=== PATIENT | female | born 1985 | race Two or more races ===

== ENCOUNTER 2021-05-23 02:03 | Inpatient (IN) | payer OTHER ==
[~2021-05-23 02:03] MED LIST: Sodium Chloride 0.9% 10 ML Syringe FLUSH PRN
[2021-05-23] MEDS: Lactated Ringers 1,000 ML IV SCH ×2 (06:00→07:34)
[2021-05-23] MEDS ORDERED: Citric Acid/Sodium Citrate Solution 30 ML Cup PO ONE (06:00)
[2021-05-23] MEDS ORDERED: Metoclopramide 10 MG/2 ML SDV IVPUSH ONE (06:00)
[2021-05-23] MEDS ORDERED: ceFAZolin 2 GM in Premix Bag 1 BAG IV ONE (06:00)
[2021-05-23] MEDS ORDERED: Lactated Ringers 1,000 ML ONE (07:05)
[2021-05-23] MEDS ORDERED: Morphine PF 10 MG/10 ML SDV ONE (07:05)
[2021-05-23] MEDS ORDERED: ceFAZolin 1 GM Vial ONE (07:05)
[2021-05-23] MEDS ORDERED: Ondansetron 4 MG/2 ML SDV ONE (07:05)
[2021-05-23] MEDS ORDERED: Oxytocin 10 Units/1 ML SDV ONE ×2 (07:05→08:16)
[2021-05-23] MEDS ORDERED: Ketorolac 30 MG/ML SDV ONE (07:05)
[2021-05-23] MEDS ORDERED: Bupivacaine 0.5% 30 ML SDV ONE (07:15)
--- NOTE | 2021-05-23 07:22 | PCM.PREANE ---
Preanesthetic Assessment - Anesthesia/Transfusion/Family Hx Anesthesia History: Prior Anesthesia Without Reaction Family History of Anesthesia Reaction: No Transfusion History: No Prior Transfusion(s) - Review of Systems General: No Symptoms Pulmonary: No Symptoms, Other (slight dry cough developed last week, no coughing now) Cardiovascular: No Symptoms Gastrointestinal: No Symptoms, Other (hx of hemrrhoids) Neurological: No Symptoms Other: Reports: None - Physical Assessment NPO Status Date: 05/22/21 NPO Status Time: 22:00 Vital Signs: Last Vital Signs Temp 36.8 C 05/23/21 06:27 Pulse 91 05/23/21 06:27 Resp 15 05/23/21 06:27 BP 123/76 05/23/21 06:27 Pulse Ox 97 05/23/21 06:27 Height: 1.65 m Weight: 85.457 kg ASA Class: 2 Mental Status: Alert & Oriented x3 Airway Class: Mallampati = 2 Dentition: Reports: Normal Dentition Thyro-Mental Finger Breadths: 3 Mouth Opening Finger Breadths: 3 ROM/Head Extension: Full Lungs: Clear to Auscultation, Normal Respiratory Effort Cardiovascular: Regular Rate, Regular Rhythm - Lab Values: Laboratory Last Values WBC 8.54 K/mm3 (3.98-10.04) 05/23/21 05:30 RBC 4.17 M/mm3 (3.98-5.22) 05/23/21 05:30 Hgb 12.9 gm/dl (11.2-15.7) 05/23/21 05:30 Hct 38.5 % (34.1-44.9) 05/23/21 05:30 MCV 92.3 fl (79.4-94.8) 05/23/21 05:30 MCH 30.9 pg (25.6-32.2) 05/23/21 05:30 MCHC 33.5 g/dl (32.2-35.5) 05/23/21 05:30 RDW Std Deviation 46.8 fL (36.4-46.3) H 05/23/21 05:30 Plt Count 238 K/mm3 (182-369) 05/23/21 05:30 MPV 9.7 fl (9.4-12.3) 05/23/21 05:30 Neut % (Auto) 72.0 % (34.0-71.1) H 05/23/21 05:30 Lymph % (Auto) 19.2 % (19.3-51.7) L 05/23/21 05:30 [place] % (Auto) 6.4 % (4.7-12.5) 05/23/21 05:30 Eos % (Auto) 0.6 (0.7-5.8) L 05/23/21 05:30 Baso % (Auto) 0.6 % (0.1-1.2) 05/23/21 05:30 Neut # (Auto) 6.15 K/mm3 (1.56-6.13) H 05/23/21 05:30 Lymph # (Auto) 1.64 K/mm3 (1.18-3.74) 05/23/21 05:30 [place] # (Auto) 0.55 K/mm3 (0.24-0.36) H 05/23/21 05:30 Eos # (Auto) 0.05 K/mm3 (0.04-0.36) 05/23/21 05:30 Baso # (Auto) 0.05 K/mm3 (0.01-0.08) 05/23/21 05:30 SARS-CoV-2 RNA (TRISHA) Negative (NEGATIVE) 05/23/21 05:30 - Allergies Allergies/Adverse Reactions: Allergies Allergy/AdvReac Type Severity Reaction Status Date / Time sutures Allergy Hives Uncoded 05/23/21 06:43 - Blood Blood Available: No Product(s) Available: None - Anesthesia Plan Pre-Op Medication Ordered: None - Acknowledgements Anesthesia Type Planned: Spinal Pt an Appropriate Candidate for the Planned Anesthesia: Yes Alternatives and Risks of Anesthesia Discussed w Pt/Guardian: Yes Pt/Guardian Understands and Agrees with Anesthesia Plan: Yes PreAnesthesia Questionnaire Gastrointestinal History: Reports: Chronic Constipation, Hemorrhoids [place] HISTORIAN History: Reports: Hematologic History: Reports: Anemia - Past Surgical History GI Surgical History: Reports: Other (See Below) Other GI Surgeries/Procedures: hemorrhoidectomy 2014 Female Surgical History: Reports: Breast Implant, Other (See Below) Other Female Surgeries/Procedures: lap, reposition fallopian tubes - SUBSTANCE USE Tobacco Use Status *Q: Never Tobacco User Tobacco Use Within Last Twelve Months: No Second Hand Smoke Exposure: No Recreational Drug Use History: No - CURRENT (IN HOUSE) MEDS Current Meds: Current Medications Lactated Ringer's (Ringers, Lactated) 1,000 mls @ 125 mls/hr IV ASDIRECTED [facility] Last Admin: 05/23/21 06:00 Dose: 125 mls/hr Documented by: Sodium Chloride (Sodium Chloride 0.9% 10 Ml Syringe) 10 ml FLUSH ASDIRECTED PRN PRN Reason: Keep Vein Open Discontinued Medications Cefazolin Sodium (Cefazolin 1 Gm Vial) Confirm Administered Dose 2 gm .ROUTE .STK-MED ONE Stop: 05/23/21 07:06 Citric Acid/Sodium Citrate (Citric Acid/Sodium Citrate Solution 30 Ml Cup) 30 ml PO ONETIME ONE Stop: 05/23/21 06:01 Last Admin: 05/23/21 07:04 Dose: 30 ml Documented by: Cefazolin Sodium/Dextrose 2 gm (/ Premix) 50 mls @ 100 mls/hr IV ONETIME ONE Stop: 05/23/21 06:29 Lactated Ringer's (Ringers, Lactated) Confirm Administered Dose 1,000 mls @ as directed .ROUTE .STK-MED ONE Stop: 05/23/21 07:06 Ketorolac Tromethamine (Ketorolac 30 Mg/Ml Sdv) Confirm Administered Dose 30 mg .ROUTE .STK-MED ONE Stop: 05/23/21 07:06 Metoclopramide HCl (Metoclopramide 10 Mg/2 Ml Sdv) 10 mg IVPUSH ONETIME ONE Stop: 05/23/21 06:01 Last Admin: 05/23/21 07:04 Dose: 10 mg Documented by: Morphine Sulfate (Morphine Pf 10 Mg/10 Ml Sdv) Confirm Administered Dose 10 mg .ROUTE .STK-MED ONE Stop: 05/23/21 07:06 Ondansetron HCl (Ondansetron 4 Mg/2 Ml Sdv) Confirm Administered Dose 4 mg .ROUTE .STK-MED ONE Stop: 05/23/21 07:06 Oxytocin (Oxytocin 10 Units/1 Ml Sdv) Confirm Administered Dose 10 unit .ROUTE .STK-MED ONE Stop: 05/23/21 07:06
[2021-05-23] MEDS ORDERED: fentaNYL 100 MCG/2 ML SDV IVPUSH PRN (07:24)
[2021-05-23] MEDS ORDERED: Ondansetron 4 MG/2 ML SDV IVPUSH PRN (07:24)
[2021-05-23] MEDS ORDERED: diphenhydrAMINE 50 MG/ML SDV IVPUSH PRN ×2 (07:24→10:10)
[2021-05-23] MEDS ORDERED: ePHEDrine 50 MG/ML SDV ONE (07:57)
--- NOTE | 2021-05-23 08:51 | PCM.OPNOTE ---
- General Post-Op/Procedure Note Date of Surgery/Procedure: 05/23/21 Operative Procedure(s): repeat Findings: viable female, weight 3180g, 8/9 apgars at 0809, normal uterus, tubes and ovaries VERY THIN UTERINE WINDOW. Adhesions. Pre Op Diagnosis: prior desires repeawt Post-Op Diagnosis: Same Anesthesia Technique: Spinal Primary Surgeon: Yu Anton Sports Medicine Coordinator: Porsha Jansen Sports Medicine Coordinator: Tamy Hubbard Fluid Replacement, Intraop: 1,000 Output, Urine Amount: 125 EBL in mLs: 585 Complications: None Condition: Good Free Text/Narrative:: The patient was taken to the operating room where spinal anesthesia was dosed to surgical levels without difficulty. The patient was prepped and draped in the usual sterile fashion in the dorsal supine position with a leftward tilt. A Pfannenstiel skin incision was made with the scalpel and carried through to the underlying layer of fascia. The fascia was incised in the midline and extended laterally using Mendoza scissors. Beena clamps were used to elevate the superior aspect of the fascial incision, which was elevated, and the underlying rectus muscles were dissected off bluntly and using Mendoza scissors. Attention was then turned to the inferior aspect of the fascial incision, which in similar fashion was grasped with Beena clamps, elevated, and the underlying rectus muscles were dissected off bluntly and using the mendoza. The rectus muscles were dissected in the midline. The peritoneum was entered bluntly; this incision was extended superiorly and inferiorly with good visualization of the bladder. The bladder blade was inserted. The vesicouterine peritoneum was identified and entered sharply using Metzenbaum scissors. This incision was extended laterally and the bladder flap was created digitally. Under the bladder flap only thin peritoneum was seen with amniotic fluid and baby floating clearly beneath. Entry into this window occurred digitally while taking down bladder flap. Clear fluid was noted. The infant was subsequently delivered by flexing the head to the incision. Body and shoulders followed without difficulty. The cord was clamped and cut. The was subsequently handed to the awaiting laborer demolition whose presence had been requested.. The placenta was delivered spontaneously intact with a three-vessel cord noted. The uterus was exteriorized and cleared of all clots and debris. The uterine incision was repaired in 1 layer using 0 monocryl. Hemostasis was visualized. Hemostasis was visualized bilaterally. The uterus was returned to the abdomen. The uterine incision was reexamined and it was noted to be hemostatic. The pelvis was copiously irrigated. The fascia was closed with 1 PDS suture, and the skin was closed with 3-0 monocryl. Sponge, lap, and instrument counts were correct x2. The patient was stable at the completion of the procedure and was subsequently transferred to the recovery room in stable condition.
[2021-05-23] MEDS ORDERED: ePHEDrine 50 MG/ML SDV IVPUSH PRN (10:10)
[2021-05-23] MEDS ORDERED: Acetaminophen/oxyCODONE 325-5 MG Tab PO PRN ×2 (10:10)
[2021-05-23] MEDS ORDERED: Naloxone 0.4 MG/ML SDV IVPUSH PRN (10:10)
[2021-05-23] MEDS ORDERED: Dextrose 5%-Lactated Ringers 1,000 ML IV SCH (10:10)
--- NOTE | 2021-05-23 10:22 | PCM.POSTAN ---
POST ANESTHESIA ASSESSMENT - MENTAL STATUS Mental Status: Alert, Oriented - VITAL SIGNS Vital Signs: Last Vital Signs Temp 36.6 C 05/23/21 09:40 Pulse 81 05/23/21 10:01 Resp 18 05/23/21 10:10 BP 113/71 05/23/21 10:01 Pulse Ox 99 05/23/21 10:01 - RESPIRATORY Respiratory Status: Respiratory Rate WNL, Airway Patent, O2 Saturation Stable, Supplemental Oxygen - CARDIOVASCULAR CV Status: Pulse Rate WNL, Blood Pressure Stable - GASTROINTESTINAL GI Status: No Symptoms - PAIN Pain Score: 0 - POST OP HYDRATION Hydration Status: Adequate & Stable
[2021-05-23] MEDS: Ketorolac 30 MG/ML SDV IVPUSH SCH ×2 (13:48→20:20)
[2021-05-24] MEDS ORDERED: Ketorolac 30 MG/ML SDV ONE (04:08)
[2021-05-24] MEDS: Ketorolac 30 MG/ML SDV IVPUSH SCH (04:10)
--- NOTE | 2021-05-24 08:00 | PCM48HPAN ---
Post Anesthesia Note - EVALUATION WITHIN 48HRS OF ANESTHETIC Vital Signs in Normal Range: Yes Patient Participated in Evaluation: Yes Respiratory Function Stable: Yes Airway Patent: Yes Cardiovascular Function Stable: Yes Hydration Status Stable: Yes Pain Control Satisfactory: Yes Nausea and Vomiting Control Satisfactory: Yes Mental Status Recovered: Yes Vital Signs: Last Vital Signs Temp 36.9 C 05/23/21 15:48 Pulse 69 05/24/21 03:55 Resp 13 05/24/21 06:59 BP 115/70 05/24/21 03:55 Pulse Ox 100 05/24/21 06:59
[2021-05-24] MEDS ORDERED: Magnesium Hydroxide 400 MG/5 ML Susp 30 ML Cup PO PRN (09:42)
--- NOTE | 2021-05-24 09:42 | PCM.SN.2 ---
- Free Text/Narrative Note: Post Operative Progress Note POD #1 Subjective: Doing well overall. Ambulating without difficulty. Lochia minimal. Reports that she does have small increase in bleeding when she urinates. Voiding without difficulty after Mullen catheter was removed this morning. Passing flatus. Tolerating regular diet without nausea or vomiting. Pain controlled with oral medications. Breast-feeding with minimal difficulty. Reports that she is having some pain and itching at the areas of the tape around the incision. Objective: Vitals: Vital Signs - 24 hr 05/23/21 05/23/21 05/23/21 15:00 15:48 15:49 Temperature 36.9 C Pulse, 70 77 Peripheral Respiratory 16 15 Rate Blood Pressure 103/62 O2 Sat by Pulse 100 100 Oximetry 05/23/21 05/23/21 05/23/21 19:00 20:00 20:29 Temperature Pulse, 70 Peripheral Respiratory 15 15 Rate Blood Pressure 118/69 O2 Sat by Pulse 97 97 100 Oximetry 05/24/21 05/24/21 05/24/21 00:00 00:50 01:00 Temperature Pulse, 68 Peripheral Respiratory 14 14 Rate Blood Pressure 104/68 O2 Sat by Pulse 98 99 100 Oximetry 05/24/21 05/24/21 05/24/21 02:00 03:00 03:55 Temperature Pulse, 69 Peripheral Respiratory 15 14 Rate Blood Pressure 115/70 O2 Sat by Pulse 100 100 100 Oximetry 05/24/21 05/24/21 06:59 10:05 Temperature 36.9 C Pulse, 73 Peripheral Respiratory 13 15 Rate Blood Pressure 111/83 O2 Sat by Pulse 100 100 Oximetry Physical Exam General: Alert and oriented, no acute distress Lungs: Clear to auscultation bilaterally Heart: Regular rate and rhythm Abdomen: Soft, minimal appropriate tenderness, non-distended, fundus midline, nontender and at the umbilicus Incision: Clean, dry and intact, no erythema, bleeding or drainage with Steri- Strips in place, mild erythema and blistering of skin near the tape edges especially to the lateral sides Extremities: No edema in bilateral lower extremities, no calf tenderness bilaterally Labs: Laboratory Results - last 24 hr 05/24/21 Range/Units 04:57 WBC 7.81 (3.98-10.04) K/mm3 RBC 3.66 L (3.98-5.22) M/mm3 Hgb 11.5 (11.2-15.7) gm/dl Hct 34.7 (34.1-44.9) % MCV 94.8 (79.4-94.8) fl MCH 31.4 (25.6-32.2) pg MCHC 33.1 (32.2-35.5) g/dl RDW Std Deviation 47.3 H (36.4-46.3) fL Plt Count 199 (182-369) K/mm3 MPV 9.6 (9.4-12.3) fl Neut % (Auto) 69.4 (34.0-71.1) % Lymph % (Auto) 20.9 (19.3-51.7) % [place] % (Auto) 8.2 (4.7-12.5) % Eos % (Auto) 0.6 L (0.7-5.8) Baso % (Auto) 0.3 (0.1-1.2) % Neut # (Auto) 5.42 (1.56-6.13) K/mm3 Lymph # (Auto) 1.63 (1.18-3.74) K/mm3 [place] # (Auto) 0.64 H (0.24-0.36) K/mm3 Eos # (Auto) 0.05 (0.04-0.36) K/mm3 Baso # (Auto) 0.02 (0.01-0.08) K/mm3 ASSESSMENT: 36-year-old female -0-0-2 s/p repeat section POD #1 for history of section, complicated by advanced maternal age PLAN: Doing well Breast-feeding with minimal difficulty. Assist as needed Incision healing well. Continue to keep clean and dry. Areas with allergic reaction and blisters near edges of tape that was used to secure bandage in place. Recommend use Bacitracin ointment over this area to help with pain and reduce risk of infection. Recommend avoiding cloth tape in the future due to likely adhesive allergy Lochia minimal. Continue to monitor for appropriate lochia. Continue routine post-operative care Anticipate discharge home tomorrow Lul Garzon MD 11:53 AM 05/24/2021
[2021-05-24] MEDS: Docusate Sodium 100 MG Cap PO SCH ×2 (10:14→21:31)
[2021-05-24] MEDS ORDERED: Bacitracin Oint 15 GM Tube TOP SCH ×3 (11:45→15:00)
[2021-05-24] MEDS: Ibuprofen 600 MG Tab PO PRN ×2 (14:16→19:54)
[2021-05-25] MEDS: Ibuprofen 600 MG Tab PO PRN ×2 (02:06→08:08)
--- NOTE | 2021-05-25 06:40 | PCM.DCSUM1 ---
Discharge Summary - Hospital Course Diagnosis: Stroke: No - Discharge Data Discharge Date: 05/25/21 Discharge Disposition: Home, Self-Care 01 Condition: Good - Referral to Home Health Primary Care Physician: Yu Anton MD - Patient Summary/Data Operative Procedure(s) Performed: repeat - Patient Instructions Activity: No Strenuous Activities Activity, Other: pelvic rest Driving: Do Not Drive Showering/Bathing: May Shower Wound/Incision Care: Keep Operative Site/Wound Site Clean and Dry Notify Provider of: Fever, Increased Pain, Swelling and Redness, Drainage, Nausea and/or Vomiting - Discharge Plan *PRESCRIPTION DRUG MONITORING PROGRAM REVIEWED*: Yes *COPY OF PRESCRIPTION DRUG MONITORING REPORT IN PATIENT ERASMO: No Home Medications: Home Meds Docusate Sodium [Colace] 100 mg PO DAILY 05/23/21 [History] Hydrocortisone Acetate [Anusol-Hc] 25 mg RECTAL BID 05/23/21 [History] Vit C/Ascorb Sod/Multivit-Min [Emergen-C 500 mg Chewable Tab] 250 mg PO DAILY 05/23/21 [History] ondansetron HCL [Zofran] 4 mg PO Q6HR PRN 05/23/21 [History] Referrals: Yu Anton MD [Primary Care Provider] - (2 weeks) - Discharge Summary/Plan Comment DC Time >30 min.: No Total # of Minutes for Discharge Time: 20 - General Info Date of Service: 05/25/21 Functional Status: Reports: Pain Controlled - Review of Systems General: Reports: No Symptoms HEENT: Reports: No Symptoms Pulmonary: Reports: No Symptoms Cardiovascular: Reports: No Symptoms Gastrointestinal: Reports: No Symptoms Genitourinary: Reports: No Symptoms Musculoskeletal: Reports: No Symptoms Skin: Reports: No Symptoms Neurological: Reports: No Symptoms Psychiatric: Reports: No Symptoms - Patient Data Vitals - Most Recent: Last Vital Signs Temp 36.5 C 05/25/21 02:44 Pulse 65 05/25/21 02:44 Resp 14 05/25/21 02:44 BP 116/67 05/25/21 02:44 Pulse Ox 98 05/25/21 02:44 Weight - Most Recent: 85.457 kg I&O - Last 24 hours: Intake & Output 05/24/21 05/24/21 05/25/21 14:59 22:59 06:59 Intake Total 0 Output Total 600 Balance -600 0 Lab Results - Last 24 hrs: Laboratory Results - last 24 hr 05/23/21 Range/Units 05:30 RPR Non-reactive (NONREACTIVE) Med Orders - Current: Current Medications Bacitracin (Bacitracin Oint 15 Gm Tube) 0 gm TOP [facility]IRECTED [facility] Last Admin: 05/24/21 14:17 Dose: 1 tube Documented by: Diphenhydramine HCl (Diphenhydramine 50 Mg/Ml Sdv) 25 mg IVPUSH Q6H PRN PRN Reason: Itching or Nausea Docusate Sodium (Docusate Sodium 100 Mg Cap) 100 mg PO BID [facility] Last Admin: 05/24/21 21:31 Dose: 100 mg Documented by: Ephedrine Sulfate (Ephedrine 50 Mg/Ml Sdv) 5 mg IVPUSH SEECOMMENT PRN PRN Reason: Other Ibuprofen (Ibuprofen 600 Mg Tab) 600 mg PO Q6H PRN PRN Reason: mild pain or fever Last Admin: 05/25/21 02:06 Dose: 600 mg Documented by: Magnesium Hydroxide (Magnesium Hydroxide 400 Mg/5 Ml Susp 30 Ml Cup) 30 ml PO DAILY PRN PRN Reason: Constipation Naloxone HCl (Naloxone 0.4 Mg/Ml Sdv) 0.1 mg IVPUSH SEECOMMENT PRN PRN Reason: Respiratory Depression Oxycodone/Acetaminophen (Acetaminophen/Oxycodone 325-5 Mg Tab) 1 tab PO Q4H PRN PRN Reason: Pain (moderate 4-6) Oxycodone/Acetaminophen (Acetaminophen/Oxycodone 325-5 Mg Tab) 2 tab PO Q4H PRN PRN Reason: Pain (severe 7-10) Discontinued Medications Bacitracin (Bacitracin Oint 15 Gm Tube) 1 gm TOP TID DAPHNIE Bacitracin (Bacitracin Oint 15 Gm Tube) 0 gm TOP TID DAPHNIE Bupivacaine HCl (Bupivacaine 0.5% 30 Ml Sdv) Confirm Administered Dose 30 ml .ROUTE .STK-MED ONE Stop: 05/23/21 07:16 Last Admin: 05/23/21 08:02 Dose: 10 ml Documented by: Cefazolin Sodium (Cefazolin 1 Gm Vial) Confirm Administered Dose 2 gm .ROUTE .STK-MED ONE Stop: 05/23/21 07:06 Citric Acid/Sodium Citrate (Citric Acid/Sodium Citrate Solution 30 Ml Cup) 30 ml PO ONETIME ONE Stop: 05/23/21 06:01 Last Admin: 05/23/21 07:04 Dose: 30 ml Documented by: Diphenhydramine HCl (Diphenhydramine 50 Mg/Ml Sdv) 25 mg IVPUSH Q6H PRN PRN Reason: Pruritis Ephedrine Sulfate (Ephedrine 50 Mg/Ml Sdv) Confirm Administered Dose 50 mg .ROUTE .STK-MED ONE Stop: 05/23/21 07:58 Fentanyl (Fentanyl 100 Mcg/2 Ml Sdv) 50 mcg IVPUSH Q5M PRN PRN Reason: Pain Cefazolin Sodium/Dextrose 2 gm (/ Premix) 50 mls @ 100 mls/hr IV ONETIME ONE Stop: 05/23/21 06:29 Lactated Ringer's (Ringers, Lactated) 1,000 mls @ 125 mls/hr IV [facility]ED [facility] Last Admin: 05/23/21 07:34 Dose: 125 mls/hr Documented by: Lactated Ringer's (Ringers, Lactated) Confirm Administered Dose 1,000 mls @ as directed .ROUTE .STK-MED ONE Stop: 05/23/21 07:06 Dextrose/Lactated Ringer's (Dextrose 5%-Lactated Ringers) 1,000 mls @ 125 mls/hr IV ASDIRECTED [facility] Stop: 05/23/21 18:09 Last Admin: 05/23/21 15:48 Dose: 125 mls/hr Documented by: Ketorolac Tromethamine (Ketorolac 30 Mg/Ml Sdv) Confirm Administered Dose 30 mg .ROUTE .STK-MED ONE Stop: 05/23/21 07:06 Ketorolac Tromethamine (Ketorolac 30 Mg/Ml Sdv) 30 mg IVPUSH Q6H [facility] Stop: 05/24/21 01:31 Last Admin: 05/24/21 04:10 Dose: 30 mg Documented by: Ketorolac Tromethamine (Ketorolac 30 Mg/Ml Sdv) Confirm Administered Dose 30 mg .ROUTE .STK-MED ONE Stop: 05/24/21 04:09 Last Admin: 05/24/21 04:41 Dose: Not Given Documented by: Metoclopramide HCl (Metoclopramide 10 Mg/2 Ml Sdv) 10 mg IVPUSH ONETIME ONE Stop: 05/23/21 06:01 Last Admin: 05/23/21 07:04 Dose: 10 mg Documented by: Miscellaneous Medication (Phenylephrine Hcl In 0.9% Nacl 1 Mg/10 Ml Syringe) Confirm Administered Dose 1 mg .ROUTE .STK-MED ONE Stop: 05/23/21 07:53 Morphine Sulfate (Morphine Pf 10 Mg/10 Ml Sdv) Confirm Administered Dose 10 mg .ROUTE .STK-MED ONE Stop: 05/23/21 07:06 Ondansetron HCl (Ondansetron 4 Mg/2 Ml Sdv) Confirm Administered Dose 4 mg .ROUTE .STK-MED ONE Stop: 05/23/21 07:06 Ondansetron HCl (Ondansetron 4 Mg/2 Ml Sdv) 4 mg IVPUSH ONETIME PRN PRN Reason: Nausea/Vomiting Oxytocin (Oxytocin 10 Units/1 Ml Sdv) Confirm Administered Dose 10 unit .ROUTE .STK-MED ONE Stop: 05/23/21 07:06 Oxytocin (Oxytocin 10 Units/1 Ml Sdv) Confirm Administered Dose 10 unit .ROUTE .STK-MED ONE Stop: 05/23/21 08:17 Sodium Chloride (Sodium Chloride 0.9% 10 Ml Syringe) 10 ml FLUSH ASDIRECTED PRN PRN Reason: Keep Vein Open - Exam General: Reports: Alert, Oriented HEENT: Reports: Pupils Equal, Pupils Reactive, EOMI, Mucous Membr. Moist/[place] Neck: Reports: Supple Lungs: Reports: Clear to Auscultation, Normal Respiratory Effort Cardiovascular: Reports: Regular Rate, Regular Rhythm GI/Abdominal Exam: Normal Bowel Sounds, Soft, Non-Tender, No Organomegaly, No Distention Rectal (Female) Exam: Normal Exam, Normal Rectal Tone Back Exam: Reports: Normal Inspection, Full Range of Motion Extremities: Normal Inspection, Normal Range of Motion, Non-Tender, No Pedal Edema, Normal Capillary Refill Skin: Reports: Warm, Dry, Intact Wound/Incisions: Reports: Healing Well Neurological: Reports: No New Focal Deficit Psy/Mental Status: Reports: Alert
[2021-05-25] MEDS: Docusate Sodium 100 MG Cap PO SCH (08:08)
== END 2021-05-25 10:40 | disposition home or self-care (01) | DRG 788 ==
LOC: JD.OB 05:05
PROVIDERS: ADMIT Obstetrics & Gynecology; ATTEND Obstetrics & Gynecology
PROC: 10D00Z1 Extraction of Products of Conception, Low, Open Approach (ICD-10-PCS; principal; 2021-05-23)
DX: O34.211 Maternal care for low transverse scar from previous cesarean delivery (principal); Z37.0 Single live birth; O99.62 Diseases of the digestive system complicating childbirth; K21.9 Gastro-esophageal reflux disease without esophagitis; Z3A.39 39 weeks gestation of pregnancy; Z20.822 Contact with and (suspected) exposure to COVID-19
CPT/HCPCS: 01961; 36415; 59025; 85025; 86592; 86850; 86900; 86901; A9270-GY; J0690; J1885; J2270; J2370; J2405; J2590; J2765; J3490; J7120; J7121; U0002